=== PATIENT | male | born 1950 | race African-American/Black ===

== ENCOUNTER → 2020-05-22 | Day surgery (SDC) | payer MEDICARE ==
[~2020-05-22] MED LIST: AMLODIPINE BESY10 MG PO; ATORVASTATIN CA10 MG PO; BC POWDER PACK1 EAC1 PO; BENAZEPRIL-HCT1 EAC2 PO; FENTANYL CITRATE/PF 100MCG/2 ML INJ ONE; FLUTICASONE PRO16 GM; LEVOCETIRIZINE D5 MG PO; MIDAZOLAM HCL 2 MG/2 ML VIAL ONE; ONDANSETRON HCL INJ 2MG/ML 2ML 2 MG/ML VIAL ONE; OR PHACO EYE KIT ONE; PREOP PHACO EYE KIT ONE; TRIAMCINOLONE ACET 40 MG/ML VIAL ONE
[2020-05-22 14:45] VITALS: BP 136/72
== END | disposition home or self-care (01) ==
LOC: OR 09:33
PROVIDERS: ATTEND Ophthalmology
DX: H25.12 Age-related nuclear cataract, left eye (principal); I10 Essential (primary) hypertension; E78.5 Hyperlipidemia, unspecified; Z79.82 Long term (current) use of aspirin
CPT/HCPCS: 66984; 93005; J2250; J2405; J3010; J3301